=== PATIENT | female | born 1940 | race Caucasian/White ===

== ENCOUNTER 2020-02-28 12:07 | Outpatient (CLI) | payer MEDICARE, SELFPAY ==
--- NOTE | ~2020-02-28 | XR_ITS ---
XR chest 2V 02/28/2020 12:33 Indication: Cough for 5 weeks. Recent fever. Procedure: 2 view chest Comparison: Comparison to multiple prior studies sequentially, with oldest reviewed study dated 01/22. Findings: Heart size normal. Postsurgical changes in the right lung consistent with partial pneumonec radha. No focal air space disease, pulmonary edema, pleural effusion or suspected pneumothorax. Chroni c apical pleural thickening/scarring. The lungs are hyperinflated which is consistent with, but not d iagnostic of chronic obstructive pulmonary disease. There are chronic thoracic vertebral wedge compre ssion deformities with vertebroplasty changes. Impression: 1: No acute cardiopulmonary disease. Reviewed, dictated and finalized at location A. Impression: 1: No acute cardiopulmonary disease.
== END 2020-02-28 12:08 | disposition home or self-care (01) ==
PROVIDERS: PCP Internal Medicine; Visit Provider Nurse Practitioner
DX: R05 Cough (principal)
CPT/HCPCS: 71046

== ENCOUNTER 2020-04-03 20:27 | Observation (INO) | payer MEDICARE, SELFPAY ==
[2020-04-03] VITALS (10 sets, daily range): BP systolic 150–185; BP diastolic 99–119; PULSE 79–89; RESP 18–24; TEMP 36.8; O2SAT 96–98
--- NOTE | ~2020-04-03 | XR_ITS ---
EXAMINATION: XR chest 1V portable EXAM DATE: 04/03/2020 21:06 INDICATION: Cough. TECHNIQUE: Frontal and lateral projections of the chest obtained and reviewed. Comparison is made to prior examination from 02/28/2020. FINDINGS: Moderate chronic hyperinflation. Right apical chronic opacities likely postinfectious. The se are unchanged. No confluent consolidation, pneumothorax or pleural effusion suspected. Right hilar surgical changes. Some linear regions of right lower lobe scarring. Cardiomediastinal silhouette is normal. There is aortic arteriosclerosis. Treated thoracolumbar compression fractures. IMPRESSION: 1. Hyperinflation. 2. Postinfectious residua. 3. Other chronic findings. Reviewed, dictated and finalized at location A.
--- NOTE | ~2020-04-03 | CT_ITS ---
EXAMINATION: CT brain wo con EXAM DATE: 04/03/2020 21:02 INDICATION: Temporary change in awareness. Productive cough. TECHNIQUE: Spiral CT of the head was performed without contrast. Axial, coronal and sagittal images were reviewed. The dose-length product (DLP) for this examination was 756.67 mGy-cm. The exposure w as tailored according to patient size, and iterative reconstruction (ASIR) was used as additional dos e reduction technique. There is no prior study for comparison. FINDINGS: There is no acute intraparenchymal hemorrhage. No evidence of intraparenchymal brain mass lesion. No evidence of acute infarction. Please note that initial head CT has limited sensitivity f or small or acute infarctions. There is moderate periventricular and subcortical hypodensity, nonspec ific but probably related to small vessel ischemic disease. There is mild to moderate prominence of the sulci and ventricles related to cerebral atrophy. There is intracranial carotid arterioscleros is. There are no extra-axial collections. There is no mass effect or midline shift. Patient has arnold d bilateral ocular lens surgery. Soft tissue is unremarkable. The visualized sinuses and mastoid ai r cells are well aerated. Sinus surgical changes. IMPRESSION: 1. No acute intracranial findings. 2. Chronic age related findings. Reviewed, dictated and finalized at location A.
--- NOTE | 2020-04-03 20:29 | ECG_ITS ---
Measurements Intervals Alligator Rate: 86 P: 75 MA: 146 QRS: 74 QRSD: 90 T: 53 QT: 386 QTc: 463 Interpretive Statements SINUS RHYTHM ATRIAL PREMATURE COMPLEX POSSIBLE RIGHT ATRIAL ENLARGEMENT BASELINE ARTIFACT- I, III, AVL, V3-V4 BORDERLINE ECG Electronically Signed On 04-04-2020 6:57:48 CDT by Adonay Segovia D.O.
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
[2020-04-03 20:47] LABS: Basophils Percent Auto 0.5 % (0.2-1.2); Eosinophils Absolute Auto 0.3 K/mm3 (0-0.3); Eosinophils Percent Auto 3.8 % (0-4.4); Hematocrit 40.5 % (37.0-47.0); Hemoglobin 13.6 g/dL (12.0-15.0); Immature Granulocyte Absolute 0.02 K/mm3 (0.00-0.031); Immature Granulocyte Percent A 0.2 % (0-0.5); Lymphocytes Absolute Auto 2.33 K/mm3 (0.9-3.2); Lymphocytes Percent Auto 27.1 % (18.3-44.2); Mean Corpuscular HGB Conc 33.6 g/dl (32-36); Mean Corpuscular Hemoglobin 29.4 pg (26-34); Mean Corpuscular Volume 87.7 fl (80-100); Mean Platelet Volume 10.6 fl (7.4-10.4); Monocytes Absolute Auto 0.7 K/mm3 (0.1-0.6); Monocytes Percent Auto 8.1 % (2.6-8.5); Neutrophils Absolute Auto 5.2 K/mm3 (1.3-6.7); Neutrophils Percent Auto 60.3 % (45.5-73.1); Platelet Count Result 199 k/mm3 (150-375); Red Blood Count 4.62 M/mm3 (4.2-5.4); Red Cell Distribution Width 12.8 % (11.5-14.5); White Blood Count 8.6 K/mm3 (4.5-10.0)
[2020-04-03 20:59] LABS: Partial Thromboplastin Time 26.4 SECONDS (22.3-36.8)
[2020-04-03 21:01] LABS: Alanine Aminotransferase 14 U/L (4-35); Albumin Level 3.6 g/dL (3.5-5.1); Alkaline Phosphatase 88 U/L (38-126); Aspartate Amino Transferase 20 U/L (14-36); Bilirubin,Total 0.3 mg/dL (0.2-1.3); Blood Urea Nitrogen 16 mg/dL (7-17); Calcium 8.8 mg/dL (8.4-10.2); Carbon Dioxide 29 mmol/L (22-30); Chloride 105 mmol/L (98-107); Estimated CRCL calculation 42 ml/min; Estimated Glomerular Filt Rate > 60; Glucose 103 mg/dL (65-105); Potassium 3.4 mmol/L (3.4-5.0); Sodium 137 mmol/L (137-145)
[2020-04-03 21:03] LABS: Prothrombin Time 12.8 Seconds (11.1-14.7)
--- NOTE | 2020-04-03 21:05 | PC.NURSE ---
[facility] [place]
[2020-04-03 21:06] LABS: Ethanol < 10 mg/dL (<10)
[2020-04-03 21:07] LABS: Acetaminophen < 10 ug/mL (10-30); Salicylate < 1.0 mg/dL (2-20)
[2020-04-03 21:15] LABS: Alveolar/Arterial O2 Gradient 29.6 mmHg; Base Excess ABG 2.1 mEq/l (+/-2.0); Fractional Inspired Oxygen 21 %; Oxygen Content ABG 18.3 %vol (16.0-22.0); Oxygen Saturation ABG 93.8 % (95.0-100.0); Oxyhemoglobin 90.5 % THb (90.0-100.0); PCO2 ABG 43.3 mmHg (35.0-45.0); PO2 ABG 68.3 mmHg (80.0-100.0); PO2 FiO2 Ratio Arterial Blood 3.25 %; Total Hemoglobin 14.4 g/dL (12.0-18.0); pH ABG 7.413 (7.350-7.450)
[2020-04-03 21:16] LABS: Device ROOM AIR; Modified Allen's Test Pass; Site Drawn RIGHT RADIAL
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
[2020-04-03 21:21] LABS: Troponin I < 0.012 ng/mL (0.000-0.034)
[2020-04-03 21:29] LABS: Add Urine Microscopic? NO; Appearance Urine Clear (Clear); Bilirubin Urine Negative (Negative); Blood Urine Negative (Negative); Color Urine Yellow (Yellow); Glucose Urine UA Negative (Negative); Ketones Urine Negative (Negative); Leukocyte Esterase Ur Negative LEU/UL (Negative); Nitrate Urine Negative (Negative); Protein Urine Negative (Negative); Specific Grav Ur 1.015 (1.001-1.035); Urobilinogen Urine Negative mg/dL (<2.0)
[2020-04-03 21:43] LABS: Amphetamine Screen Urine Negative (Negative); Barbiturate Screen Urine Negative (Negative); Benzodiazepines Screen Urine Negative (Negative); Cannabinoid Screen Urine Negative (Negative); Cocaine Screen Urine Negative (Negative); Methadone Screen Urine Negative (Negative); Opiate Screen Urine Negative (Negative); Phencyclidine Screen Urine Negative (Negative)
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
--- NOTE | 2020-04-03 22:39 | PC.NURSE ---
2043-Spoke with Pamela, pharmacist with Poison Control: Clonazepam peak time 1-4 hours, Recommend supportive care, observe, mild hypotension, respiratory insufficiency, drowsiness to obtundation. Flumazinil not recommended. Benzonatate- pt denies taking this medication, she reports the bottle was empty. Per poison control, if the pt did ingest. Monitor for sedation, dizzyness, aggitation, tremors, seizure, arrhythmia , drooling, numb mouth, face and throat. Supportive care.
--- NOTE | 2020-04-03 23:10 | PC.NURSE ---
Assumed care of patient at this time. Received bedside report from GLOIRA Mitchell.
--- NOTE | 2020-04-03 23:11 | PC.NURSE ---
Gena, from Poison control calls to get update on patient.
[2020-04-03 23:53] LABS: Salicylate < 1.0 mg/dL (2-20)
[2020-04-04] VITALS (22 sets, daily range): BP systolic 114–172; BP diastolic 90–111; PULSE 70–89; RESP 14–29; TEMP 36.6–36.9; O2SAT 94–100; BMI 14.8
--- NOTE | 2020-04-04 00:58 | ADMIMU ---
This patient, Carmen Thrasher, was admitted to IMU status, and placed in Intensive Care Unit-10. Patient/family oriented to hospital policies and general routines including ID bracelet, bed and alarms, visiting hours, pain management, procedures, bathroom and other care routines, personal items, smoking policy, room service/diet, and visiting hours. Valuables list has been completed. Information on how to activate the Rapid Response Team has been discussed. Patient/Family are encouraged to report perceived risks to care and to ask questions if they do not understand what they are told or what they should do.
[2020-04-04 01:15] LABS: Acetaminophen < 10 ug/mL (10-30); Salicylate < 1.0 mg/dL (2-20)
[2020-04-04] MEDS: SODIUM CHLORIDE 0.9% IV 1,000 ML 100 ML IV CONT ×2 (01:30→10:54)
[2020-04-04 04:16] LABS: Basophils Absolute Auto 0.1 K/mm3 (0.0-0.1); Basophils Percent Auto 0.8 % (0.2-1.2); Eosinophils Absolute Auto 0.4 K/mm3 (0-0.3); Eosinophils Percent Auto 5.5 % (0-4.4); Hematocrit 42.4 % (37.0-47.0); Hemoglobin 13.9 g/dL (12.0-15.0); Immature Granulocyte Absolute 0.02 K/mm3 (0.00-0.031); Immature Granulocyte Percent A 0.3 % (0-0.5); Lymphocytes Absolute Auto 2.44 K/mm3 (0.9-3.2); Lymphocytes Percent Auto 32.9 % (18.3-44.2); Mean Corpuscular HGB Conc 32.8 g/dl (32-36); Mean Corpuscular Hemoglobin 29.1 pg (26-34); Mean Corpuscular Volume 88.9 fl (80-100); Mean Platelet Volume 10.8 fl (7.4-10.4); Monocytes Absolute Auto 0.7 K/mm3 (0.1-0.6); Monocytes Percent Auto 8.8 % (2.6-8.5); Neutrophils Absolute Auto 3.8 K/mm3 (1.3-6.7); Neutrophils Percent Auto 51.7 % (45.5-73.1); Platelet Count Result 187 k/mm3 (150-375); Red Blood Count 4.77 M/mm3 (4.2-5.4); Red Cell Distribution Width 12.7 % (11.5-14.5); White Blood Count 7.4 K/mm3 (4.5-10.0)
[2020-04-04 04:29] LABS: Alanine Aminotransferase 13 U/L (4-35); Albumin Level 3.4 g/dL (3.5-5.1); Alkaline Phosphatase 73 U/L (38-126); Aspartate Amino Transferase 24 U/L (14-36); Bilirubin,Total 0.8 mg/dL (0.2-1.3); Blood Urea Nitrogen 14 mg/dL (7-17); Calcium 8.6 mg/dL (8.4-10.2); Carbon Dioxide 30 mmol/L (22-30); Chloride 106 mmol/L (98-107); Estimated CRCL calculation 41 ml/min; Estimated Glomerular Filt Rate > 60; Glucose 93 mg/dL (65-105); Potassium 3.6 mmol/L (3.4-5.0); Sodium 136 mmol/L (137-145)
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
--- NOTE | 2020-04-04 12:26 | PCDIET ---
Nutrition consult received. Recommend small, frequent meals and Ensure Enlive TID. Discussed strategies to maximize intake with patient.
--- NOTE | 2020-04-04 13:18 | PC.NURSE ---
Poison control called at 1315 and asked for a recent set of vital signs. Patient has been cleared by poison control and they have closed out her case.
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
[2020-04-04] MEDS: IPRATROPIUM BR 0.02% INH SOLN 0.5 MG/2.5 ML VIAL INHALATION (20:27)
[2020-04-04] MEDS: ALBUTEROL SULFATE NEB 2.5 MG/0.5 ML INH 5 MG INHALATION (20:27)
[2020-04-04] MEDS: ENOXAPARIN 40 MG/0.4 ML SYRINGE SUB-Q (20:33)
[2020-04-05] VITALS (7 sets, daily range): BP systolic 115–148; BP diastolic 65–77; PULSE 68–80; RESP 14–18; TEMP 36.5–36.6; O2SAT 97
[2020-04-05] MEDS: ALBUTEROL SULFATE NEB 2.5 MG/0.5 ML INH 5 MG INHALATION ×3 (01:35→13:59)
[2020-04-05] MEDS: IPRATROPIUM BR 0.02% INH SOLN 0.5 MG/2.5 ML VIAL INHALATION ×3 (01:36→13:59)
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
--- NOTE | 2020-04-05 11:52 | PCDIET ---
Nutrition Follow-Up Complete: Nutrition Diagnosis: Inadequate oral intake related to decreased appetite and social factors as evidenced by BMI of 14.9, reported intake. Nutrition Goal: Patient to consume 50% of meals and supplements or greater. Goal met. Patient consumed 50-100% of meals yesterday and took 85% of breakfast today + Ensure Enlive. Recommend continuing regular diet with Ensure Enlive TID. Last recorded weight is 41.1 kg which is increased from last review. Bowel Motility: No documented BM. Labs Reviewed: No new labs available. Meds Noted: Albuterol, Atrovent, Oscal 500 + D Additional Notes: Right nash with skin tear. No documented pressure ulcers. Will continue to monitor with same goal. Nutrition Monitoring and Evaluation: Follow up every 3 days.
[2020-04-05] MEDS: TRAMADOL HCL 50 MG TABLET PO (12:32)
--- NOTE | 2020-04-05 18:26 | PM.DS ---
DS: Admitting Diagnosis Admitting Diagnosis Admitting Diagnosis: Poisoning by benzodiazepines, intentional self-harm, initial encounter DS: Discharge Diagnosis Discharge Diagnosis (1) Suicide attempt by benzodiazepine overdose: Code(s): T42.4X2A - Poisoning by benzodiazepines, intentional self-harm, initial encounter Status: Acute Assessment and Plan: The patient is not somnolent and her mentation is normal. The patient is medically stable to be transferred to inpatient psych and arrangements were made for [facility] at [facility] (2) Tobacco abuse: Code(s): Z72.0 - Tobacco use Status: Acute Assessment and Plan: Nicotine patch has been provided as needed. Patient is not interested in smoking cessation education (3) Severe protein-calorie malnutrition: Code(s): E43 - Unspecified severe protein-calorie malnutrition Status: Acute Assessment and Plan: Dietitian consult. Regular diet. The patient's TSH was normal on admission. (4) Hypertension: Code(s): I10 - Essential (primary) hypertension Status: Acute Assessment and Plan: History of hypertension but not currently being treated. EKG borderline LVH by voltage. Patient was anxious on admission and bp much better date of discharge (5) COPD (chronic obstructive pulmonary disease): Code(s): J44.9 - Chronic obstructive pulmonary disease, unspecified Status: Acute Assessment and Plan: Receive nebulized treatments while here and will continue her albuterol inhaler on discharge DS: Summary Hospital Course Hospital Course: Admitted after presenting to the emergency room by EMS being found by her son after have been taken unknown quantity Klonopin. Patient was never somnolent and had no respiratory issues.. She was monitored and remained stable and seen by crisis intervention and deemed necessary for inpatient evaluation and treatment. Transferred to the [facility] facility at [facility] Time Spent with Patient Time attestation: Total time spent providing and/or coordinating discharge services: 35 minutes Exam Narrative: Exam Narrative: Condition on discharge Blood pressure 146/76 pulse is 76 saturating 97% on room air Lungs were clear with prolonged expiratory phase but no wheezing CV regular rate rhythm Abdomen benign Extremities without edema distal pulses are 2+ small healing abrasion left anterior she and Neuro alert cooperative no focal deficits Discharge Plan Discharge Attending physician on discharge: Branden Gandhi Discharging Clinician: Branden Gandhi Patient Disposition: Other Activity: as tolerated Diet: regular Discharge Instructions: d/c to [facility] psych at [facility] Patient Instructions: Antibiotic Form, How to Stop Smoking (DC), Pain Management (DC), Depression (DC), Help Prevent Suicide in Older Adults (DC), Depression in Older Adults (ED) Stand Alone Forms: General Discharge Information Follow-up/Referrals: Laurent Patel DO [Primary Care Provider] - Keep Reg. Scheduled Appt. Discharge Medications: Continued albuterol sulfate [ProAir HFA] 90 mcg/actuation HFA aerosol inhaler 2 puff INHALATION .Q4-6 H PRN (Reason: Pain, Moderate) RF: 0 calcium carbonate-vitamin D3 [Os-Adam 500 + D3] 500 mg(1,250mg) -200 unit tablet 1 tablet PO BID RF: 0 tramadol 50 mg tablet 50 mg PO Q8H PRN (Reason: Sleep) RF: 0 benzonatate 200 mg capsule 200 mg PO TID PRN (Reason: cough) Qty: 30 RF: 1 Discontinued clonazepam 1 mg tablet 1 mg PO BID PRN (Reason: Anxiety) Qty: 60 RF: 1 Date of admission: 04/03/20 23:22 Primary Care Provider: Laurent Patel Admitting Provider: Ashlyn Melton Discharge Date/Time: 04/05/20 16:00 Attending physician on admission: Ashlyn Melton Condition: Stable Quality VTE Prophylaxis VTE prophylaxis: mechanical ordered (SCDs)
== END 2020-04-05 16:00 | disposition other institution (70) ==
LOC: ANHED 23:43 → ANHICU 23:54
PROVIDERS: Admitting Provider Internal Medicine; Emergency Provider Emergency Medicine; PCP Internal Medicine; Visit Provider Internal Medicine
DX: T42.4X2A Poisoning by benzodiazepines, intentional self-harm, initial encounter (principal); F17.210 Nicotine dependence, cigarettes, uncomplicated; E43 Unspecified severe protein-calorie malnutrition; Z68.1 Body mass index [BMI] 19.9 or less, adult; I10 Essential (primary) hypertension; J44.9 Chronic obstructive pulmonary disease, unspecified; I25.10 Atherosclerotic heart disease of native coronary artery without angina pectoris; E78.5 Hyperlipidemia, unspecified; Z79.899 Other long term (current) drug therapy
CPT/HCPCS: 36415; 36600; 70450; 71045; 80053; 80307; 81003; 82805; 84443; 84484; 85025; 85610; 85730; 93005; 94640; 96360; 96361; 96372; 99285; A9270; G0378; J1650; J7030

== ENCOUNTER 2020-12-02 11:46 | Outpatient (CLI) | payer MEDICARE, SELFPAY ==
--- NOTE | ~2020-12-02 | XR_ITS ---
XR thoracic spine 2V DATE: 12/02/2020 13:01 INDICATION: Thoracic spine pain following fall 2 months ago TECHNIQUE: AP, lateral, swimmer views COMPARISON: 10/14/2017 CT thoracic spine FINDINGS: Diffuse osteopenia. There is chronic mild anterior wedge compression fracture deformity at T8. Status post vertebroplasty at T8 and T9. No other fracture is evident. The thoracic pedicles are intact. No paraspinal soft tissue thickening. Mild degenerative spurring of the thoracic spine. Status post right lung resection. IMPRESSION: Chronic T8 mild compression fracture deformity Status post vertebral plasty at T8 and T9 since 10/14/2017 Diffuse osteopenia Mild degenerative change of the thoracic spine. Reviewed, dictated and finalized at location A. ONAL SALES CONSULTANT
--- NOTE | ~2020-12-02 | CT_ITS ---
EXAMINATION: CT diagnostic chest wo con DATE: 12/02/2020 12:09 INDICATION: Solitary pulmonary nodule TECHNIQUE: Computed tomography (CT) of the chest was performed without intravenous contrast. Automate d exposure control and iterative reconstruction technique were employed. Exam dose: 124.88 mGy-cm to ceasar exam DLP. COMPARISON: 10/30/2019 CTA chest 04/20/2020 portable AP chest FINDINGS: Chronic stable right upper lobe scarring. Postoperative change including middle lobectomy. There is a suture line in the mid to lower central and anterior right lung. There is chronic scarring in the anterior right lung base and to a lesser extent in the posterior right lower lung There is left apical scarring. There is scarring at the base of the lingula, chronic. There is old pulmonary granulomatous disease including calcified right lower lobe pulmonary granuloma , calcified right hilar nodes. No pulmonary consolidation, pleural effusion or pneumothorax. Heart size is normal. No pericardial or pleural effusion. No interval lymphadenopathy since 9 is evident. Vertebroplasty is noted at T8 and T9. Diffuse osteopenia. IMPRESSION: Postoperative changes of the right lung; no significant change since 10/30/2019 Reviewed, dictated and finalized at Location A. Reviewed, dictated and finalized at location A. BILITATION SERVICES COORDINATOR IMPRESSION: Postoperative changes of the right lung; no significant change sin ce 10/30/2019
== END 2020-12-02 11:47 | disposition home or self-care (01) ==
LOC: ANHIMG 11:50
PROVIDERS: Family Provider Internal Medicine; PCP Internal Medicine; Visit Provider Nurse Practitioner
DX: R91.1 Solitary pulmonary nodule (principal); M85.89 Other specified disorders of bone density and structure, multiple sites
CPT/HCPCS: 71250; 72070

== ENCOUNTER 2020-12-31 16:15 | Emergency (ER) | payer MEDICARE, SELFPAY ==
[2020-12-31] VITALS (15 sets, daily range): BP systolic 118–197; BP diastolic 87–116; PULSE 83–92; RESP 16–18; TEMP 36.6–37.1; O2SAT 95–99
--- NOTE | ~2020-12-31 | XR_ITS ---
EXAMINATION: XR ankle LT min 3V DATE: 12/31/2020 16:53 INDICATION: Left ankle pain, initial encounter TECHNIQUE: Anteroposterior, lateral, mortise, and additional oblique view of the ankle were obtained. COMPARISON: None. FINDINGS: There is a heterotopic osseous density projecting dorsal to the anterior aspect of the talu s on the lateral view. There is also a questionable thin linear ossification projecting lateral to th e talus on the AP view. Ankle soft tissue swelling is noted. Bone alignment is normal. IMPRESSION: 1. Possible avulsion fractures at the anterior and lateral aspects of the talus. Reviewed, dictated and finalized at location A. OR UI UX DEVELOPER IMPRESSION: 1. Possible avulsion fractures at the anterior and lateral aspects of the talus .
--- NOTE | ~2020-12-31 | CT_ITS ---
EXAMINATION: CT brain wo con INDICATION: Headache COMPARISON: 04/03/2020 TECHNIQUE: Standard unenhanced head CT. The dose-length product (DLP) was 605.33 mGy-cm. The mA was a djusted according to patient size. Iterative reconstruction technique was employed. FINDINGS: There is no acute intraparenchymal hemorrhage. No evidence of mass lesion. No evidence of a cute infarction. There is moderate periventricular and subcortical hypodensity probably related to sm all vessel ischemic disease. There is mild prominence of the sulci and ventricles related to cerebral atrophy. Intracranial calcified cerebral atherosclerosis is noted. There are no extra-axial collecti ons. There is no mass effect or midline shift. Changes in the globes are likely from ocular lens surg marianna. There is mild mucosal thickening of the paranasal sinuses. IMPRESSION: 1. No acute intracranial abnormality. 2. Age related findings. Reviewed, dictated and finalized at location A. ING PROFESSOR
--- NOTE | ~2020-12-31 | XR_ITS ---
EXAMINATION: XR hand LT min 3V INDICATION: Left hand pain after fall TECHNIQUE: Three views of the left hand are obtained. COMPARISON: 02/21/2017 FINDINGS: The bones are osteopenic which limits the sensitivity for fracture however none is seen. Th ere is advanced osteoarthritis at the first carpometacarpal joint. There is mild osteoarthritis in mu ltiple interphalangeal joints. The soft tissues are unremarkable. IMPRESSION: 1. No acute osseous abnormality. Reviewed, dictated and finalized at location A. DESKMAN
--- NOTE | 2020-12-31 16:30 | ED.GENADULT ---
HPI - General Adult General Chief complaint: Fall <VY Rodriguez Last Filed: 12/31/20 20:48> Stated complaint: left wrist and ankle injury <VY Rodriguez Last Filed: 12/31/20 20:48> Time Seen by Provider: 12/31/20 16:26 <VY Rodriguez Last Filed: 12/31/20 20:48> Source: patient and other (family friend) <Maddison Nunez PA-C - Last Filed: 12/31/20 20:48> Mode of arrival: ambulatory <VY Rodriguez Last Filed: 12/31/20 20:48> Limitations: no limitations <Maddison Nunez PA-C - Last Filed: 12/31/20 20:48> History of Present Illness HPI narrative: Patient was brought in by family friend after she fell at home this morning. She states that she stumbled because of her house slippers and had pain in her left ankle and her left thumb. States it took her approximately 30 minutes to get off the floor, denies any loss of consciousness. No pain in her back or head or neck. <Maddison Nunez PA-C - Last Filed: 12/31/20 20:48> Onset (ago): hour(s) <Maddison Nunez PA-C - Last Filed: 12/31/20 20:48> Associated symptoms: denies other symptoms <VY Rodriguez Last Filed: 12/31/20 20:48> Related Data Home medications: Home Medications Medication Instructions Recorded Confirmed albuterol sulfate 90 mcg/actuation 2 puff INHALATION .Q4-6 H PRN gm 01/02/20 11/19/20 aerosol inhaler calcium carbonate 500 mg (1,250 1 tablet PO BID 01/02/20 11/19/20 mg)-vitamin D3 200 unit tablet <VY Rodriguez Last Filed: 12/31/20 20:48> Allergies/adverse reactions: Allergies Allergy/AdvReac Type Severity Reaction Status Date / Time codeine Allergy Intermediate RASH Verified 12/31/20 16:30 Penicillins Allergy Intermediate Rash Verified 12/31/20 16:30 atorvastatin AdvReac Intermediate Dizziness Verified 12/31/20 16:30 meperidine AdvReac Intermediate N/V Verified 12/31/20 16:30 morphine AdvReac Intermediate N/V Verified 12/31/20 16:30 Sulfa (Sulfonamide AdvReac Intermediate Nausea and Verified 12/31/20 16:30 Antibiotics) Vomiting <Maddison Nunez PA-C - Last Filed: 12/31/20 20:48> Review of Systems Review of Systems: All systems reviewed & are unremarkable except as noted in HPI and below <Maddison Nunez PA-C - Last Filed: 12/31/20 20:48> [facility] Past Medical History Medical History: Medical History Abnormal CT of the chest With chronic tree-in-bud opacities posterior segment right upper lobe biopsies quickly of chronic infection noted on CT scan September 2018 Anxiety Arthritis Back pain Bronchitis CAD (coronary artery disease) COPD (chronic obstructive pulmonary disease) With continued tobacco use Diverticulitis DVT (deep venous thrombosis) 1974 Fractures rt wrist, rt foot Hyperlipidemia Hypertension No longer on antihypertensives 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 The patient's mother had tuberculosis when the patient was born Nasal congestion Osteoporosis Noted on DEXA scan in 2016 Pneumonia 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 treated with a right partial lobectomy at [facility] 1974 Pulmonary nodule Shingles Thoracic spine pain Tonsillitis UTI (urinary tract infection) <Maddison Nunez PA-C - Last Filed: 12/31/20 20:48> Surgical History Surgical History: Surgical History H/O lumpectomy Right breast with benign pathology H/O sinus surgery August 2007 H/O thyroidectomy Excision of a thyroid nodule H/O: hysterectomy At age 30 due to uterine prolapse History of appendectomy History of cardiac cath In 1974 with normal coronary History of lobectomy of lung middle lobe of rt lung from blood clot History of vertebroplasty T7-T8 complicated by embolism of seem and material in September 2018 Hx of cataract surgery bilateral Hx of spinal fusi
--- NOTE | 2020-12-31 17:54 | ECG_ITS ---
Measurements Intervals [place] Rate: 87 P: 78 ME: 162 QRS: 74 QRSD: 90 T: 38 QT: 364 QTc: 439 Interpretive Statements SINUS RHYTHM ATRIAL PREMATURE COMPLEX POSSIBLE LEFT ATRIAL ENLARGEMENT BORDERLINE ST ABNORMALITY- INF/LAT LEADS BASELINE ARTIFACT- I, II, AVR, AVL BORDERLINE ECG Electronically Signed On 12-31-2020 20:33:49 MEATCUTTER by Adonay Segovia D.O.
[2020-12-31] MEDS: cloNIDine HCL 0.1 MG TABLET PO ×2 (18:11→19:08)
[2020-12-31 18:37] LABS: Basophils Percent Auto 0.4 % (0.2-1.2); Eosinophils Absolute Auto 0.3 K/mm3 (0-0.3); Eosinophils Percent Auto 2.9 % (0-4.4); Hematocrit 44.8 % (37.0-47.0); Immature Granulocyte Absolute 0.03 K/mm3 (0.00-0.031); Immature Granulocyte Percent A 0.3 % (0-0.5); Lymphocytes Absolute Auto 2.35 K/mm3 (0.9-3.2); Lymphocytes Percent Auto 22.6 % (18.3-44.2); Mean Corpuscular HGB Conc 33.5 g/dl (32-36); Mean Corpuscular Hemoglobin 29.9 pg (26-34); Mean Corpuscular Volume 89.4 fl (80-100); Mean Platelet Volume 10.4 fl (7.4-10.4); Monocytes Absolute Auto 0.8 K/mm3 (0.1-0.6); Monocytes Percent Auto 7.4 % (2.6-8.5); Neutrophils Absolute Auto 6.9 K/mm3 (1.3-6.7); Neutrophils Percent Auto 66.4 % (45.5-73.1); Platelet Count Result 197 k/mm3 (150-375); Red Blood Count 5.01 M/mm3 (4.2-5.4); Red Cell Distribution Width 12.8 % (11.5-14.5); White Blood Count 10.4 K/mm3 (4.5-10.0)
[2020-12-31 18:49] LABS: Alanine Aminotransferase 13 U/L (4-35); Albumin Level 4.4 g/dL (3.5-5.1); Alkaline Phosphatase 107 U/L (38-126); Anion Gap 5 mmol/L (8-16); Aspartate Amino Transferase 24 U/L (14-36); Bilirubin,Total 0.4 mg/dL (0.2-1.3); Blood Urea Nitrogen 23 mg/dL (7-17); Calcium 9.4 mg/dL (8.4-10.2); Carbon Dioxide 34 mmol/L (22-30); Chloride 101 mmol/L (98-107); Estimated CRCL calculation 44 ml/min; Estimated Glomerular Filt Rate > 60; Glucose 89 mg/dL (65-105); Sodium 140 mmol/L (137-145)
[2020-12-31 19:00] LABS: Troponin I < 0.012 ng/mL (0.000-0.034)
== END 2020-12-31 20:55 | disposition home or self-care (01) ==
PROVIDERS: Physician Assistant; Emergency Provider General Practice; PCP Internal Medicine
DX: S82.892A Other fracture of left lower leg, initial encounter for closed fracture (principal); I10 Essential (primary) hypertension; I25.10 Atherosclerotic heart disease of native coronary artery without angina pectoris; J44.9 Chronic obstructive pulmonary disease, unspecified; Z86.718 Personal history of other venous thrombosis and embolism; E78.5 Hyperlipidemia, unspecified; M81.0 Age-related osteoporosis without current pathological fracture; M19.90 Unspecified osteoarthritis, unspecified site; E89.0 Postprocedural hypothyroidism; F41.9 Anxiety disorder, unspecified; Z90.2 Acquired absence of lung [part of]; Z98.42 Cataract extraction status, left eye; Z98.41 Cataract extraction status, right eye; Z98.1 Arthrodesis status; Z96.1 Presence of intraocular lens; Z87.440 Personal history of urinary (tract) infections; Z87.891 Personal history of nicotine dependence; W01.0XXA Fall on same level from slipping, tripping and stumbling without subsequent striking against object, initial encounter; I49.1 Atrial premature depolarization; R94.31 Abnormal electrocardiogram [ECG] [EKG]
CPT/HCPCS: 36415; 70450; 73130; 73610; 80053; 84484; 85025; 93005; 99284; A9270

== ENCOUNTER 2021-06-05 14:03 | Outpatient (CLI) | payer MEDICARE, SELFPAY ==
[2021-06-05 14:27] LABS: Add Urine Microscopic? NO; Appearance Urine Clear (Clear); Bilirubin Urine Negative (Negative); Blood Urine Negative (Negative); Color Urine Yellow (Yellow); Glucose Urine UA Negative (Negative); Ketones Urine Negative (Negative); Leukocyte Esterase Ur Negative LEU/UL (Negative); Nitrate Urine Negative (Negative); Protein Urine Negative (Negative); Specific Grav Ur 1.017 (1.001-1.035); Urobilinogen Urine Negative mg/dL (<2.0)
== END 2021-06-05 14:04 | disposition home or self-care (01) ==
LOC: ANHLAB 14:05
PROVIDERS: PCP Internal Medicine; Visit Provider Nurse Practitioner
DX: R35.0 Frequency of micturition (principal)
CPT/HCPCS: 81003

== ENCOUNTER 2023-08-17 11:31 | Outpatient (CLI) | payer MEDICARE, SELFPAY ==
[2023-08-17 15:06] LABS: Appearance Urine Turbid (Clear); Bacteria Urine None Seen /hpf; Bilirubin Urine Negative (Negative); Blood Urine Negative (Negative); Calcium Oxalate Crystals Urine Present /hpf; Color Urine Dark Yellow (Yellow); Glucose Urine UA Negative (Negative); Ketones Urine Trace mg/dL (Negative); Leukocyte Esterase Ur Trace LEU/UL (Negative); Mucus Urine Present /lpf; Nitrate Urine Negative (Negative); Non Pathogenic Casts 0-2; Protein Urine Negative (Negative); Specific Grav Ur 1.024 (1.001-1.035); Squamous Epithelial Cell Urine Few /hpf (Few); WBC Urine 0-5 /hpf; pH Urine 5.5 (5.0-9.0)
[2023-08-17 15:08] LABS: Add Urine Microscopic? YES
== END 2023-08-17 11:32 | disposition home or self-care (01) ==
PROVIDERS: PCP Nurse Practitioner Family; Visit Provider Nurse Practitioner
DX: R35.0 Frequency of micturition (principal); R32 Unspecified urinary incontinence
CPT/HCPCS: 81001

== ENCOUNTER → 2023-11-18 10:07 | Outpatient (CLI) | payer MEDICARE, SELFPAY ==
--- NOTE | ~2023-11-18 | XR_ITS ---
XR thoracic spine 3V DATE: 11/18/2023 10:49 INDICATION: Back pain TECHNIQUE: AP, lateral, swimmer views COMPARISON: None FINDINGS: There is diffuse osteopenia. There is mild thoracolumbar dextroscoliosis. Status post vertebroplasty at compression fractures of T8 and T9. Mild anterior wedge compression fracture deformity of T11. No other fracture or bone destruction is noted. The thoracic pedicles appear intact. Postoperative changes of right lung resection. IMPRESSION: Osteopenia Compression fractures at T8, T9 and T11 Status post vertebroplasty at T8 and T9 Thoracolumbar dextroscoliosis Reviewed, dictated and finalized at location L. UMPIRE
== END ==
PROVIDERS: PCP Nurse Practitioner; Visit Provider Nurse Practitioner
DX: M41.85 Other forms of scoliosis, thoracolumbar region (principal); S22.060A Wedge compression fracture of T7-T8 vertebra, initial encounter for closed fracture; S22.070A Wedge compression fracture of T9-T10 vertebra, initial encounter for closed fracture; S22.080A Wedge compression fracture of T11-T12 vertebra, initial encounter for closed fracture; X58.XXXA Exposure to other specified factors, initial encounter; Z98.1 Arthrodesis status
CPT/HCPCS: 72072

== ENCOUNTER 2024-08-21 15:02 | Outpatient (CLI) | payer MEDICARE, SELFPAY ==
--- NOTE | ~2024-08-21 | XR_ITS ---
EXAMINATION: XR chest 2V 08/21/2024 15:24 INDICATION: Cough. PROCEDURE: 2 view chest COMPARISON: Comparison to multiple prior studies sequentially, with oldest reviewed study dated 12/2019. FINDINGS: The lungs are clear. There are healing left-sided rib fractures. There are vertebroplasty c hanges in the midthoracic spine. No acute osseous abnormality. The cardiomediastinal silhouette is wi thin normal limits. There are no pleural effusions. There is no pneumothorax suspected. The lungs are hyperinflated which is consistent with, but not diagnostic of chronic obstructive pulmonary disea se. There are changes of right partial pneumonectomy. IMPRESSION: 1: NO ACUTE CARDIOPULMONARY DISEASE. Reviewed, dictated and finalized at location B.
== END 2024-08-21 15:03 | disposition home or self-care (01) ==
LOC: ANHIMG 15:06
PROVIDERS: PCP Nurse Practitioner; Visit Provider Internal Medicine
DX: R05.9 Cough, unspecified (principal)
CPT/HCPCS: 71046